=== PATIENT | female | born 1975 | race Two or more races ===

== ENCOUNTER 2022-08-15 19:48 | Emergency (ER) | payer OTHER ==
[~2022-08-15] VITALS: Ht 160 cm; Wt 56.7 kg
--- NOTE | 2022-08-15 20:00 | NUR ---
BIBS. CHEST PAIN & PALPITATION X TODAY SHARP NON RADIAITING 07/26 DAD PAST AWAY YESTERDAY. AMBULATORY, PLACED ON BED, AAOX4, IN PAIN 8/ PS, ATTACHED TO MONITOR SINUS TACHYCARDIA MI-[id number], SATURATING AT 98%RA
--- NOTE | 2022-08-15 20:15 | NUR ---
FUSELAGE FRAMER AT BEDSIDE
[2022-08-15 20:49] LABS: BASOPHILS % (AUTO) 0.6 % (0.0-2.0); HEMATOCRIT 36 % (33-45); HEMOGLOBIN 11.9 g/dL (11.5-14.8); LYMPHOCYTES # (AUTO) 2.5 K/uL (0.8-4.8); LYMPHOCYTES % (AUTO) 34.8 % (20.0-44.0); MEAN CORPUSCULAR HGB CONC 33 g/dl (31.0-36.0); MEAN CORPUSCULAR VOLUME 86 fL (82-100); MONOCYTES # (AUTO) 0.6 K/uL (0.1-1.30); NEUTROPHILS # (AUTO) 3.9 K/uL (1.8-8.9); NEUTROPHILS % (AUTO) 54.6 % (43.0-81.0); PLATELET COUNT (AUTO) 357 K/uL (150-450); RED BLOOD CELL COUNT(AUTO) 4.16 MIL/uL (4.0-5.2); WHITE BLOOD COUNT (AUTO) 7.1 K/uL (4.3-11.0)
[2022-08-15 21:22] LABS: CALCIUM, SERUM 9.2 mg/dL (8.5-10.1); CARBON DIOXIDE 26 mmol/L (21-32); CHLORIDE 102 mmol/L (98-107); CREATININE 0.7 mg/dL (0.6-1.3); GLUCOSE 130 mg/dL (74-106); POTASSIUM 3.3 mmol/L (3.5-5.1); SODIUM SERUM 137 mmol/L (136-145); UREA NITROGEN, BLOOD 13 mg/dL (7-18)
[2022-08-15] MEDS ORDERED: MORPHINE SULFATE INJ 2 MG/ML DISP.SYRIN IV ONE (21:30)
[2022-08-15] MEDS ORDERED: IV NS 0.9% 1,000 ML BAG IV ONE (21:30)
[2022-08-15] MEDS ORDERED: MORPHINE SULFATE INJ 4 MG/ML DISP.SYRIN ONE (21:32)
--- NOTE | 2022-08-15 21:55 | NUR ---
PATIENT TAKEN TO CT VIA [facility]
[2022-08-15 22:06] LABS: ALBUMIN 3.1 g/dL (3.4-5.0); BILIRUBIN,DIRECT 0.1 mg/dL (0.0-0.2); BILIRUBIN,TOTAL 0.2 mg/dL (0.2-1.0); TOTAL PROTEIN, SERUM 7.3 g/dL (6.4-8.2)
[2022-08-15] MEDS ORDERED: KETOROLAC TROMETHAMINE INJ 30 MG/ML VIAL ONE (22:22)
[2022-08-15] MEDS ORDERED: POTASSIUM CHLORIDE 20 MEQ TAB.PRT.SR PO ONE (22:30)
[2022-08-15] MEDS ORDERED: KETOROLAC TROMETHAMINE INJ 30 MG/ML VIAL IV ONE (22:30)
--- NOTE | 2022-08-15 23:21 | NUR ---
URINE SAMPLE SENT TO LAB
[2022-08-16 00:28] LABS: BILIRUBIN,URINE NEGATIVE (NEGATIVE); COLOR,URINE YELLOW (YELLOW); NITRITE, URINE NEGATIVE (NEGATIVE); PH,URINE 6.5 (5.0-8.0); PROTEIN,URINE >=300 mg/dl (NEGATIVE); UGLUCOSE >=1000 mg/dL (NEGATIVE); UROBILINOGEN,URINE 0.2 EU/dL (0.2)
[2022-08-16 00:29] LABS: LEUKOCYTE ESTERASE ,URINE SMALL (NEGATIVE)
[2022-08-16 00:40] LABS: BACTERIA,URINE Many /HPF (None Seen); SQUAMOUS EPITHELIAL CELL,UR Moderate /HPF (None Seen); WBC,URINE 21-50 /HPF (0-3)
[2022-08-16] MEDS ORDERED: CEFTRIAXONE 1GM BAG (ER ONLY) 1 GM/50 ML PIGGYBACK IV ONE (01:30)
--- NOTE | 2022-08-16 01:36 | NUR ---
COVID SWAB COLLECTED AND SENT TO LAB
[2022-08-16] MEDS ORDERED: MORPHINE SULFATE INJ 4 MG/ML DISP.SYRIN ONE (02:29)
[2022-08-16] MEDS ORDERED: MORPHINE SULFATE INJ 2 MG/ML DISP.SYRIN IV ONE (02:30)
--- NOTE | 2022-08-16 02:53 | NUR ---
TINY EPRP PAGED PER DR GRIGGS.
[2022-08-16 03:28] VITALS: BP 151/96
--- NOTE | 2022-08-16 03:32 | NUR ---
ACCEPTED AT [facility] ETA [id number]
--- NOTE | 2022-08-16 03:52 | NUR ---
REPORT GIVEN TO YEN AT [facility]
--- NOTE | 2022-08-16 04:46 | NUR ---
PT PICKED UP BY [id number] FOR TRANSFER TO [facility]. BESIDE REPORT GIVEN TO EMT. TRANSFER FORM COMPLETED, CHART COPIED, AND IMAGING CD PROVIDED TO PLUMBING MECHANIC. V/S STABLE AT TIME OF TRANSFER.
== END 2022-08-16 04:48 | disposition short-term general hospital (02) ==
LOC: ER 19:55
DX: N30.80 Other cystitis without hematuria (principal); R00.0 Tachycardia, unspecified; Z87.440 Personal history of urinary (tract) infections; I10 Essential (primary) hypertension; E87.6 Hypokalemia; Z20.822 Contact with and (suspected) exposure to COVID-19
CPT/HCPCS: 99285; 74176; 71045; 96375; 96361; 93005; 85025; 80048; 87077; 87040 ×2; 82010; 83605; 83690; 80076; 36415; 84484; 96365; 87426; 96376; 87086; 84703; 87186; 81001; J2270 ×2; J1885; J0696; C9803